=== PATIENT | male | born 2000 | race Caucasian/White ===

== ENCOUNTER 2020-02-10 20:32 | Emergency (ER) | payer MEDICAID ==
[~2020-02-10] VITALS: Ht 175.3 cm; Wt 86.2 kg
[2020-02-10 20:37] VITALS: BP 149/93
[2020-02-10] MEDS ORDERED: ONDANSETRON 4 MG ODT PO ONE (20:50)
[2020-02-10] MEDS ORDERED: HYDROcodone/APAP 5/325 MG 1 TAB TAB PO ONE (20:50)
[2020-02-10 21:18] VITALS: BP 149/93
== END 2020-02-10 22:18 | disposition home or self-care (01) ==
LOC: MED 20:32
DX: S93.491A Sprain of other ligament of right ankle, initial encounter (principal); V00.131A Fall from skateboard, initial encounter; Y93.89 Activity, other specified; Y92.89 Other specified places as the place of occurrence of the external cause; Y99.8 Other external cause status
CPT/HCPCS: 73590; 73610; 99284; Q0092; Q0162

== ENCOUNTER 2020-02-12 07:32 | Emergency (ER) | payer MEDICAID ==
[~2020-02-12] VITALS: Ht 175.3 cm; Wt 82.1 kg
[2020-02-12 07:46] VITALS: BP 155/77
--- NOTE | 2020-02-12 07:55 | NUR ---
PT W/C ASSISTED TO BED 3.
--- NOTE | 2020-02-12 08:03 | NUR ---
Patient being evaluated by DR ORDOÑEZ at bedside.
--- NOTE | 2020-02-12 08:06 | NUR ---
19 YO MALE CO NASAL CONGESTION FOR 3 WEEKS. PT DENIES ANY COUGH OR FEVER. NO N/V/D AND PT DENIES CHILLS. PT WAS SEEN HERE FOR A SPAINED ANKLE. PAIN IN ANKLE IS 10/10 AT THIS TIME AND DIFFUCULT FOR PT TO AMBULATE. PT SITTING IN WC AT THIS TIME. NO PMH
--- NOTE | 2020-02-12 08:20 | NUR ---
COVID SWAB COMPLETED AND WALKED TO LAB.
--- NOTE | 2020-02-12 08:26 | NUR ---
PT PLACED IN RIGHT ANKLE STIRRUP SPLINT, CMS WNL BEFORE AND AFTER
[2020-02-12 08:31] VITALS: BP 155/77
--- NOTE | 2020-02-12 08:31 | NUR ---
Patient discharged with v/s stable. Written and verbal after care instructions given and explained. Patient alert, oriented and verbalized understanding of instructions. Wheel Chair Assisted with to car. All questions addressed prior to discharge. ID band removed. Patient advised to follow up with PMD. Rx of CLARITIN given. Patient educated on indication of medication including possible reaction and side effects. Opportunity to ask questions provided and answered.
== END 2020-02-12 08:31 | disposition home or self-care (01) ==
LOC: MED 07:32
DX: S93.401A Sprain of unspecified ligament of right ankle, initial encounter (principal); R09.81 Nasal congestion; J45.998 Other asthma; F17.210 Nicotine dependence, cigarettes, uncomplicated; R03.0 Elevated blood-pressure reading, without diagnosis of hypertension; Z71.6 Tobacco abuse counseling; X58.XXXA Exposure to other specified factors, initial encounter; Y93.89 Activity, other specified; Y92.89 Other specified places as the place of occurrence of the external cause; Y99.8 Other external cause status
CPT/HCPCS: 29515; 99283; U0003